=== PATIENT | female | born 1960 | race Caucasian/White ===

== ENCOUNTER 2016-11-15 20:36 | Emergency (ER) | payer OTHER ==
[~2016-11-15] VITALS: Ht 160 cm; Wt 69.0 kg
[~2016-11-15 20:36] MED LIST: BUSPAR30 MG OR; FIORICET OR; LEXAPRO20 MG OR; TRILEPTAL300 MG OR; WELLBUTRIN150 MG OR
[2016-11-15] MEDS ORDERED: LAMICTAL25 MG PO (20:46)
[2016-11-15] MEDS ORDERED: TRILEPTAL150 MG PO (20:46)
[2016-11-15] MEDS ORDERED: ALLEGRA180 MG PO (20:46)
[2016-11-15] MEDS ORDERED: ATIVAN1 MG PO (20:47)
[2016-11-15] MEDS ORDERED: FLECTOR1.3 % EX (20:48)
[2016-11-15] MEDS ORDERED: PROVENTIL HFA IN (20:49)
[2016-11-15] MEDS ORDERED: MIRALAX3350 N1 PO (22:21)
[2016-11-15 22:35] VITALS: BP 172/77
== END 2016-11-15 22:38 | disposition home or self-care (01) | DRG 392 ==
LOC: ED 20:36
DX: K59.00 Constipation, unspecified (principal)